=== PATIENT | female | born 1945 | race Native Hawaiian/Other Pacific Islander ===

== ENCOUNTER 2019-03-31 11:35 | Emergency (ER) | payer OTHER ==
[~2019-03-31] VITALS: Ht 165.1 cm; Wt 68.0 kg
[~2019-03-31 11:35] MED LIST: HALO5INJ3 IM
[2019-03-31 12:06] LABS: PLATELET COUNT 150 K/uL (152-353)
[2019-03-31 12:14] LABS: POTASSIUM 3.9 mmol/L (3.6-5.2)
[2019-03-31 13:37] VITALS: BP 124/77; TEMP 98.2
[2019-03-31] MEDS ORDERED: AMLODIPINE BESYLATE PO (15:29)
[2019-03-31] MEDS ORDERED: LIPITOR20 MG PO (15:30)
[2019-03-31] MEDS ORDERED: DONEPEZIL HYDRO10 M1 PO (15:31)
[2019-03-31] MEDS ORDERED: LEVO0.0529 PO (15:32)
[2019-03-31] MEDS ORDERED: PAXIL40 MG PO (15:33)
[2019-03-31] MEDS ORDERED: B12-ACTIVE1 MG PO (15:35)
[2019-03-31] MEDS ORDERED: BUSPIRONE5 MG PO (15:36)
[2019-03-31] MEDS ORDERED: MEMANTINE HCL10 MG PO (15:37)
[2019-03-31] MEDS ORDERED: SEROQUEL50 MG PO (15:38)
[2019-04-12] MEDS ORDERED: BUSP5TAB2 PO (19:27)
[2019-04-12] MEDS ORDERED: OXCARBAZEPIN300 MG PO (19:27)
[2019-04-12] MEDS ORDERED: ESCI10TA PO (19:27)
[2019-04-12] MEDS ORDERED: PARO20TA3 PO (19:28)
[2019-04-12] MEDS ORDERED: RISP0.25 PO (19:29)
== END 2019-03-31 13:38 | disposition still patient (30) ==
LOC: ED 11:35
PROVIDERS: Emergency Medicine Emergency Medical Services
DX: Z00.8 Encounter for other general examination (principal); G30.9 Alzheimer's disease, unspecified; F02.81 Dementia in other diseases classified elsewhere, unspecified severity, with behavioral disturbance
CPT/HCPCS: 80053; 85027; 93005; 99285